=== PATIENT | male | born 1930 | race Caucasian/White ===

== ENCOUNTER 2018-01-09 06:43 | Emergency (ER) | payer OTHER, MEDICARE ==
[~2018-01-09] VITALS: Ht 170.2 cm; Wt 95.3 kg
[~2018-01-09 06:43] MED LIST: ALLOPURINOL 10100 M1 PO; APAP500; ASPIRIN EC325 M1 PO; ASPIRIN325 PO; ATIVAN0.5 MG PO; CELEBREX 200 M200 M1 PO; CLOPIDOGREL75 MG PO; FISH OIL 1,001000 M1 PO; FISH OIL 1,001000 M2 PO; FLOMAX PO; NORCO 5-325 TA1 EACH PO; NORVASC 2.5 MG2.5 M1 PO; PAXIL 20 MG TAB20 M1 PO; PERCOCET 5-3251 EACH PO; ULTRAM 50MG TAB50 MG PO; VITAMIN B-12100 MC1 PO; VITAMIN B-121000 MC1 PO; VITAMIN B-12500 MCG PO; VITAMIN D3400 UNIT PO; ZOFRAN ODT4 MG PO
[2018-01-09 07:14] LABS: ABSOLUTE NEUTROPHILS 5.5 thou/uL (1.4-8.2); BASOPHILS 1.5 % (0.0-2.0); EOSINOPHILS 1.7 % (0.0-3.0); HEMATOCRIT 43.7 % (42.0-52.0); HEMOGLOBIN 14.7 gm/dL (14.0-18.0); LYMPHOCYTES 16.3 % (24.0-44.0); MCH 31.9 pg (26.0-34.0); MCHC 33.8 g/dL (28.0-37.0); MCV 94.5 fL (80.0-100.0); MONOCYTES 8.8 % (1.0-8.0); PLATELET COUNT 256 thou/uL (150-400); POLYS 71.7 % (36.0-66.0); RBC 4.62 mil/uL (4.50-6.00); RDW 14.3 % (10.5-14.5); WBC 7.7 thou/uL (4.0-11.0)
[2018-01-09 07:14] LABS: URINE BILIRUBIN NEGATIVE (Negative); URINE BLOOD NEGATIVE (Negative); URINE CLARITY CLEAR; URINE COLOR YELLOW; URINE GLUCOSE-RANDOM* NEGATIVE (Negative); URINE KETONES NEGATIVE (Negative); URINE LEUKOCYTES-REFLEX NEGATIVE (Negative); URINE NITRITE-REFLEX NEGATIVE (Negative); URINE PROTEIN (DIPSTICK) NEGATIVE (Negative); URINE UROBILINOGEN 0.2 E.U./dl (0.2-1.0)
[2018-01-09 07:22] LABS: CALCIUM 9.4 mg/dL (8.5-10.1); CREATININE 1.3 mg/dL (0.7-1.3); POTASSIUM 4.2 mmol/L (3.5-5.1)
[2018-01-09 07:28] LABS: ALBUMIN 3.5 g/dL (3.4-5.0); TOTAL BILIRUBIN 0.8 mg/dL (<0.1-1.0); TOTAL PROTEIN 7.2 g/dL (6.4-8.2)
[2018-01-09] MEDS ORDERED: FLEXERIL PO (08:15)
== END 2018-01-09 08:28 | disposition home or self-care (01) ==
LOC: ER 06:43
PROVIDERS: Emergency Medicine
DX: R10.9 Unspecified abdominal pain (principal); M10.9 Gout, unspecified; M19.90 Unspecified osteoarthritis, unspecified site

== ENCOUNTER → 2018-03-08 | Outpatient (CLI) | payer OTHER, MEDICARE ==
[~2018-03-08] VITALS: Ht 345.4 cm; Wt 92.1 kg
[~2018-03-08] MED LIST changes: +FLEXERIL PO; +MOBIC7.5 MG PO; +TRIAMCINOLONE A15 G1 TOP
--- NOTE | ~2018-03-08 | HPC ---
[facility] [address] [place] [address] PAIN MANAGEMENT CONSULTATION Name: SARA FARNSWORTH [facility] [id number] Admission: 03/08/18 Attend Phys: Yinka Dodd DO Discharge: Date of : 31 Report #: [id number] THIS REPORT FOR: //name// CC: Ramiro Dodd The patient is a very pleasant 87-year-old gentleman seen in consultation at the request of Dr. Ramiro Pardo for assistance with management of acute and chronic pain. The patient had been a floor product layer for many years. He has had chronic axial back pain, more recently developed right L5 radicular pain. The patient notes the pain is exacerbated with standing and walking, some relief when he is recumbent. He has tried some OTC anti-inflammatory medications with nominal efficacy. He has tried tramadol, which unfortunately caused nausea and vomiting. He has some decreased strength in his bilateral legs, no specific paresthesia and fortunately, he denies any myelopathic symptoms. He does rate his pain quite high at 9 on a visual analog scale, describes continuous, throbbing pain, right buttock, posterior thigh and calf into the foot. REVIEW OF SYSTEMS: Complete review of systems attached to the chart and was gone over with the patient. He is , seen in the company of his who is supportive. Does not drink alcohol or use tobacco products. History of gout for which he takes allopurinol. Recent bout of poison janet for which he is using a topical triamcinolone compound. He has otherwise enjoyed remarkably good health, using very little medication. He has had prostate cancer treated in 2001 with no sequelae. 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 He is retired. Pain impact score is 36/70. PHYSICAL EXAMINATION: Reveals a 5 feet 6 inches, 203 pounds gentleman, BMI is approximately 27 kilograms per meter squared. Blood pressure 137/75, pulse 59, respirations 14. Cranial nerves 2-12 are grossly intact, though he is quite hard of hearing. Thyroid is enlarged, no nodules are noted. Cervical range of motion is full. Upper extremity strength is generally preserved. Heart is regular and rhythmical without murmur. Lungs are clear to auscultation. Abdomen shows a modestly endomorphic build. Rises from chair using armrest. He has a somewhat ataxic as well as antalgic gait favoring the right leg. Grossly positive straight leg raise on the right. Dorsiflexion and plantar flexion is modestly diminished, right greater than left. Hip flexion is generally diminished. Does have an area in the left anterior medial mendez that is quite erythematous compatible with his poison janet diagnosis. Diffuse axial tenderness. Pain is exacerbated with standing, with rotation and sidebending. [address] [address] PAIN MANAGEMENT CONSULTATION Name: SARA FARNSWORTH Marilee Room #: REG [facility] Aleksandr#: [id number] Admission: 03/08/18 Attend Phys: Yinka Dodd DO Discharge: Date of : 31 Report #: [id number] DIAGNOSTIC STUDIES: Reviewed diagnostic findings including MRI from 01/09/2018 noting multilevel disk degenerative changes, L5-S1 notes right foraminal endplate osteophyte resulting in right neural foraminal narrowing with possible right L5 nerve root impingement. This does correlate with primary symptomatology. He also has spondylitic changes with facet DJD throughout the lumbar spine. ASSESSMENT: 1. 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 2. Acute exacerbation of right L5 radiculopathy secondary to spinal stenosis. 3. History of gout. RECOMMENDATIONS: 1. Meloxicam 7.5 b.i.d. 2. Epidural injection under fluoroscopy at L5-S1. 3. Follow up in 3 weeks for reevaluation. Consideration for repeat injection if indicated clinically. May consider addressing therapy at the lumbar facets for axial back pain at that time. Thank you for allowing us to participate in the patient's care. We will keep you abreast of his progress. PROCEDURE: Lumbar epidural injection under fluoroscopy. PROCEDURE NOTE: After both written and informed consent to include risk of spinal cord damage, increased pain, weakness and dural puncture, the patient was taken to the fluoroscopy suite, placed in the prone position. After sterile prep and drape, a skin wheal with lidocaine was raised. A 22-gauge epidural Tuohy needle was inserted in the midline at L5-S1 with good loss to resistance. Negative aspiration for cerebrospinal fluid or blood was noted. Then 1 mL of Omnipaque under biplanar fluoroscopy showed good spread within the epidural space. This was followed with 80 mg of triamcinolone plus 1 mL of 1.5% preservative-free Xylocaine, 0.5 mL Xylocaine was then injected to flush the needle; it was removed. The patient was monitored for an appropriate period of time and discharged in good and stable condition. <ELECTRONICALLY SIGNED> By: Yinka Dodd DO 03/09/18 0715 1215 [id number] Yinka Dodd DO /nt
[2018-03-08 11:29] VITALS: BP 137/75
== END | disposition home or self-care (01) ==
LOC: PAIN 07:16
DX: M48.061 Spinal stenosis, lumbar region without neurogenic claudication (principal); M54.16 Radiculopathy, lumbar region; G89.29 Other chronic pain; M47.896 Other spondylosis, lumbar region; M10.9 Gout, unspecified; M19.90 Unspecified osteoarthritis, unspecified site; I25.2 Old myocardial infarction; Z85.46 Personal history of malignant neoplasm of prostate; Z85.828 Personal history of other malignant neoplasm of skin; Z88.8 Allergy status to other drugs, medicaments and biological substances; Z79.899 Other long term (current) drug therapy; Z79.82 Long term (current) use of aspirin; Z86.73 Personal history of transient ischemic attack (TIA), and cerebral infarction without residual deficits; Z87.442 Personal history of urinary calculi

== ENCOUNTER → 2018-04-03 | Outpatient (CLI) | payer OTHER, MEDICARE ==
[~2018-04-03] VITALS: Ht 170.2 cm; Wt 93.0 kg
--- NOTE | ~2018-04-03 | HPC ---
[facility] [place] [address] PAIN MANAGEMENT CONSULTATION Name: SARA FARNSWORTH Room #: REG [facility].#: [id number] Admission: 04/03/18 Attend Phys: Chang Dodd DO Discharge: Date of : 31 Report #: [id number] THIS REPORT FOR: //name// CC: Ramiro Dodd DATE OF SERVICE: 04/03/2018 REFERRING PHYSICIAN: Ramiro Pardo MD CHIEF COMPLAINT: Low back pain, lower extremity pain and paresthesias. HISTORY OF PRESENT ILLNESS: As you know, the patient is an 87-year-old male referred to our service to trial epidural injections under fluoroscopic guidance. The patient was seen in consultation on 03/08/2018, and underwent epidural injection under fluoroscopic guidance with my partner, Dr. Yinka Dodd with good efficacy. The patient indicated pain improvement of approximately 90%, lasting for nearly 2-1/2 weeks. He returns today in followup visit to undergo the second in series of epidural injections in hopes of improving pain. The patient indicates no new injury, no new trauma or any changes in medical history since his last visit. He returns to undergo the second in series of epidural injections in hopes of improving pain further. ALLERGIES: TRAMADOL. CURRENT MEDICATIONS: Meloxicam, cholecalciferol, cyanocobalamin, omega-3 fish oil, aspirin, and allopurinol. SOCIAL HISTORY: The patient denies tobacco, alcohol, IV or illicit drug use. He is retired, accompanied by his today. IMAGING: No new imaging available. PQRS: The patient has osteoarthritis of the low back, mid back, bilateral hips, and knees. He has no history of rheumatoid arthritis. He places pain intensity at 5/10. He is not a fall risk, has not had a fall in the last 3 months. He is not on blood thinners. He is not treated for hypertension. He is not on opioids. He has a low opioid addiction potential. His pain impact score is rated at 36/70, moderate. PHYSICAL EXAMINATION: VITAL SIGNS: Blood pressure 145/76, pulse is 60, respiratory rate 20 and unlabored, the patient is 97% on room air, height 5 feet 7 inches tall, weight 205 pounds, BMI calculated 32.1. GENERAL: Well-developed, well-nourished, well-hydrated 87-year-old male, [place] [address] PAIN MANAGEMENT CONSULTATION Name: SARA FARNSWORTH [facility] [id number] Admission: 04/03/18 Attend Phys: Chang Dodd DO Discharge: Date of : 31 Report #: [id number] appears his stated age, he is placing current pain score at approximately 5/10. HEENT: Normocephalic, atraumatic. Pupils are equal, round, and reactive to light. Extraocular muscles are intact. EXTREMITIES: Show no clubbing, no cyanosis, and no edema. MUSCULOSKELETAL: The patient has modestly endomorphic body habitus. He rises from the chair with the use of arm rest. He has an antalgic gait favoring right lower extremity. Seated straight leg raising mildly positive right. Supine straight leg raising positive right. Vaibhav's test negative. ASSESSMENT: 1. Lumbar radiculopathy. 2. Lumbosacral spondylosis with radicular symptoms. 3. Lumbar degeneration. 4. Myofascial pain. 5. Chronic intractable pain. PLAN: 1. The patient returns today in followup visit requesting to undergo next in the series of epidural injections. The patient reported improvement in symptoms with his previous injections, he is hopeful to see similar improvement today. The patient tolerated the procedure well, had no complications with the epidural injection provided on March 08. He has returned requesting to undergo next in the series to build on success. The patient was advised risks and benefits of the procedure, he states understood and wished to proceed. 2. No medication changes made at today's visit. The patient will continue current medical therapy as previously prescribed. 3. The patient will return to our clinic on an as needed basis for the third and final in the 6-month series of epidural injections. PROCEDURE NOTE DESCRIPTION OF PROCEDURE: L3-L4 Lumbar epidural steroid injection under fluoroscopic guidance. This is the second procedure of the first series that the patient is undergoing. After obtaining written consent, the patient was taken back to the fluoroscopy suite, placed in a prone position with pillow under the abdomen to decrease lumbar lordosis. The skin overlying the lumbosacral area was then prepped and draped in aseptic fashion. The L3-L4 vertebral interspace was then identified by AP fluoroscopy. The skin and subcutaneous tissue overlying the target site of injection was anesthetized with 3 mL 1% lidocaine. A 20-gauge 3-1/2-inch Tuohy needle was then advanced under fluoroscopic guidance towards the epidural space using a paramedian approach. The epidural space was identified using loss of resistance to air technique. After negative aspiration [address] [address] PAIN MANAGEMENT CONSULTATION Name: SARA FARNSWORTH Room #: REG [facility]#: [id number] Admission: 04/03/18 Attend Phys: Chang Dodd DO Discharge: Date of : 31 Report #: [id number] for heme or cerebrospinal fluid, a total of 0.5 mL of Omnipaque was injected. A lumbar epidurogram was confirmed using both AP and lateral fluoroscopy. After negative aspiration for heme or cerebrospinal fluid, 5 mL of a solution containing 2 mL 40 mg per mL, 80 mg total triamcinolone, 3 mL lidocaine 1% was injected in increments. Contrast spread was noted posterior epidural space. The needle was then retracted approximately half way and needle tract flushed with 1 mL of 1% lidocaine. Needle was then removed. There were no apparent sensory or motor deficits in the lower extremity following the procedure. A sterile bandage was placed over the injection site. The heart rate, pulse, oximetry and blood pressure were continuously monitored after the procedure. There were no apparent complications. The patient tolerated the procedure well and was carefully escorted to the recovery room in stable condition. There were no apparent complications. After meeting discharge criteria, the patient was then discharged home. By: 0718 1202 Chang Dodd DO /nt
[2018-04-03 10:34] VITALS: BP 145/76
== END ==
LOC: PAIN 06:34
DX: M51.16 Intervertebral disc disorders with radiculopathy, lumbar region (principal); M47.27 Other spondylosis with radiculopathy, lumbosacral region; M79.1 Myalgia; G89.29 Other chronic pain; I25.2 Old myocardial infarction; Z88.8 Allergy status to other drugs, medicaments and biological substances; Z79.899 Other long term (current) drug therapy; Z98.890 Other specified postprocedural states; Z79.82 Long term (current) use of aspirin; Z87.891 Personal history of nicotine dependence; Z86.73 Personal history of transient ischemic attack (TIA), and cerebral infarction without residual deficits; Z87.442 Personal history of urinary calculi; Z87.19 Personal history of other diseases of the digestive system

== ENCOUNTER → 2018-04-25 | Outpatient (CLI) | payer OTHER, MEDICARE ==
[~2018-04-25] VITALS: Ht 167.6 cm; Wt 90.4 kg
[~2018-04-25] MED LIST changes: +HYDROCODON-ACE1 EAC7 PO; +NEURONTIN 300300 M1 PO
--- NOTE | ~2018-04-25 | HPC ---
[facility] [place] [place] [address] PAIN MANAGEMENT CONSULTATION Name: SARA FARNSWORTH [facility] #: [facility] [id number] Admission: 04/25/18 Attend Phys: Chang Dodd DO Discharge: Date of : 31 Report #: [id number] THIS REPORT FOR: //name// CC: Ramiro Dodd DATE OF SERVICE: 04/25/2018 REFERRING PHYSICIAN: Ramiro Pardo M.D. CHIEF COMPLAINT: Low back pain and bilateral lower extremity pain with paresthesias. HISTORY OF PRESENT ILLNESS: As you know, the patient is a very pleasant 87-year-old male who was referred to our service and has undergone 2 epidural injections per the request of his PCP to determine if his symptoms might be amenable to such procedures. Unfortunately, the patient is reporting no improvement in symptoms with these injections. He indicates this last injection may "actually have worsened his symptoms." The patient, as you are aware, has significant changes in the lumbar spine that might be amenable to surgery but given his age, I do not feel he is going to be a candidate for surgery. We discussed the possibility of undergoing the next in the series of epidural injections but given the fact that he received no improvement and potentially worsening symptoms, I do not recommend this further. Options that remained are limited. Physical therapy, stretching exercises and a concerted effort at weight loss could be beneficial. Medication management might be helpful and we would be more than willing to get the patient started on medications with the caveat that he would be returning to his PCP for continuation and we also discussed the surgical options, though again I do not feel he is a candidate given his advanced age. After a discussion today, the patient chose to look towards medication management. He is placing pain today at 5/10 and states his pain is sharp and stabbing, exacerbated with walking, sitting and improves with repositioning, medications and rest. He returns today for potential adjustments in medication management. ALLERGIES: TRAMADOL. CURRENT MEDICATIONS: Allopurinol 100 mg once a day, aspirin 325 mg once a day, omega-3 fish oil 1 tab per day, cyanocobalamin 1000 mcg per day, cholecalciferol 400 units per day and Meloxicam 7.5 mg twice a day. SOCIAL HISTORY: The patient denies tobacco, alcohol or IV or illicit drug use. He is retired. He is accompanied by his present in room today. IMAGING DATA: There is no new imaging available. [address] [address] PAIN MANAGEMENT CONSULTATION Name: JAVADSARA Marilee Room #: REG [facility]#: [id number] Admission: 04/25/18 Attend Phys: Chang Dodd DO Discharge: Date of : 31 Report #: [id number] PQRS: The patient has osteoarthritis of the low back, bilateral hips and knees, also bilateral hands. He has no diagnosis of rheumatoid arthritis. He places current pain score 5/10, is not a fall risk, has not had a fall in the last 3 months. He is not on blood thinners. He is not treated for hypertension. He is not on chronic opioids. He places his pain impact score 36/70, moderate. He has a low assessment for risk of opioid addiction. PHYSICAL EXAMINATION: VITAL SIGNS: Blood pressure 134/84, pulse 83, respiratory rate 16 and unlabored. The patient is 100% on room air. Height 5 feet 6 inches tall, weight 199.2 pounds and BMI calculated 32.2. GENERAL: Well-developed, well-nourished, well-hydrated, 87-year-old male. He appears his stated age, placing current pain score 5/10. HEENT: Normocephalic and atraumatic. Pupils equal, round and reactive to light. NEUROLOGICAL: Speech is fluent. The patient has decreased hearing. EXTREMITIES: Show no clubbing, no cyanosis and no edema. MUSCULOSKELETAL: Lower extremity strength appears equal and symmetrical 5/5, muscle bulk and tone equal and symmetrical. He rises from a chair using armrests. He is somewhat ataxic as well as antalgic favoring right lower extremity over left. Dorsiflexion and plantar flexion is moderately diminished but symmetrical. Seated straight leg raising negative. Supine straight leg raising positive right. Vaibhav's test negative. ASSESSMENT: 1. Lumbar radiculopathy. 2. Spinal stenosis of the lumbar spine. 3. 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 4. Lumbosacral spondylosis with radiculopathy. 5. Foraminal stenosis of the lumbar spine. 6. Facet arthropathy of the lumbar spine. 7. Lumbar degeneration. 8. Chronic intractable pain. PLAN: 1. The patient returns today in followup visit indicating that the previous 2 epidural injections only provided transient improvement in symptoms. He is not receiving benefit greater than approximately a week. I would not recommend continuing epidural injections as they are providing no benefit and the risk far outweighs the benefit. We discussed with the patient our concerns about this today. It does not appear he is going to be amenable to epidural injections for long-term treatment. We did discuss the other treatment options available. These would include physical therapy, stretching exercises and core strengthening techniques. We discussed medication management adding a neuropathic pain medication and low-dose opioid for pain control and [address] [address] PAIN MANAGEMENT CONSULTATION Name: SARA FARNSWORTH Room #: REG [facility]#: [id number] Admission: 04/25/18 Attend Phys: Chang Dodd DO Discharge: Date of : 31 Report #: [id number] continuation of his nonsteroidal anti-inflammatory. We discussed surgical options. After reviewing risks and benefits of all proposed treatment options, the patient chose to begin with medication management. 2. The patient will be started on gabapentin. He will start 300 mg at night. Continue for 5 nights, increase to 600 mg at night for 5 nights and then 900 mg at night for 5 nights. He is to watch for side effects of somnolence, decreased mental acuity, disorientation, confusion with the use of the medication. If he notes any side effects, decrease to the dose prior and continue that dose and contact our clinic. No side effects, continue the medication as directed. 3. The patient was provided a prescription of hydrocodone 5/325 one tab p.o. q. 8 hours p.r.n. for pain, I have given the patient #90 tablets, no refills. I have advised the patient to take the medication as directed. The patient and I had a long discussion about the medication itself. It will provide some benefit in pain, but he has to watch for side effects of somnolence, decrease in mental acuity, disorientation, confusion, mental slowing and constipation, which may be fairly profound. He has had some side effects to tramadol and he will watch for any nausea that may be generated from his hydrocodone. 4. We will see the patient back in followup visit in approximately 3-4 weeks. At that time, review the efficacy of the medication provided and discussed if any other changes need to be addressed. We will stabilize the patient on his medication and returning his care to his primary care once stable. <ELECTRONICALLY SIGNED> By: Chang Dodd DO 04/26/18 0818 1247 2225 Chang Dodd DO /nt
[2018-04-25 11:04] VITALS: BP 134/84
== END ==
LOC: PAIN 07:33
DX: M47.27 Other spondylosis with radiculopathy, lumbosacral region (principal); M51.16 Intervertebral disc disorders with radiculopathy, lumbar region; M48.061 Spinal stenosis, lumbar region without neurogenic claudication; M12.88 Other specific arthropathies, not elsewhere classified, other specified site; G89.4 Chronic pain syndrome

== ENCOUNTER → 2018-05-30 | Outpatient (CLI) | payer OTHER, MEDICARE ==
[~2018-05-30] VITALS: Ht 167.6 cm; Wt 91.4 kg
[~2018-05-30] MED LIST changes: +NABUMETONE 500500 M1 PO; +ZOFRAN ODT4 MG DISSOLVE; +ZPAK PO
--- NOTE | ~2018-05-30 | HPC ---
[facility] [place] [address] [address] PAIN MANAGEMENT CONSULTATION Name: SARA FARNSWORTH Room #: REG [facility].#: [id number] Admission: 05/30/18 Attend Phys: Chang Dodd DO Discharge: Date of : 31 Report #: [id number] THIS REPORT FOR: //name// CC: Ramiro Dodd DATE OF SERVICE: 05/30/2018 REFERRING PHYSICIAN: Ramiro Pardo M.D. CHIEF COMPLAINT: Low back pain, right lower extremity pain with paresthesias and intermittent left lower extremity pain. HISTORY OF PRESENT ILLNESS: As you know, the patient is an 87-year-old male who returns to our service for continued lumbar radiculopathy. The patient indicates his pain is at 0/10. He is having no experiencing pain at all. This recently changed with the addition of gabapentin therapy. He states he has been doing well overall, has been having some concerns of anxiety issues in the late afternoon towards the evening hours, which sounds as if he is experiencing sundowner's effect. He returns today in followup visit for suggestions and treatment. Again, the patient is reporting pain score 0/10. ALLERGIES: TRAMADOL. CURRENT MEDICATIONS: Allopurinol, aspirin, omega 3 fish oil, cyanocobalamin, cholecalciferol, meloxicam and gabapentin. SOCIAL HISTORY: The patient denies tobacco, alcohol or IV or illicit drug use. He is accompanied by his son, present in room today. IMAGING DATA: No new imaging available. PQRS: The patient has osteoarthritis and low back, bilateral hips, bilateral knees, bilateral hands and no diagnosis of rheumatoid arthritis. Places current pain score 0/10. He is a fall risk but has not had a fall in the last 3 months. He is not on blood thinners. He is treated for hypertension. He is not on any chronic opioid medications. His pain impact score is reported at 36/70, moderate though he has no pain. PHYSICAL EXAMINATION: VITAL SIGNS: Blood pressure 108/75, pulse is 65, respiratory rate 18 and unlabored. The patient is 100% on room air. Height 5 feet 6 inches tall, weight 201.6 pounds and BMI calculated 32.6. GENERAL: Well-developed, well-nourished and well-hydrated exogenously obese 87-year-old male appearing his stated age, placing current pain score 0/10. [place] [address] PAIN MANAGEMENT CONSULTATION Name: SARA FARNSWORTH [id number] Admission: 05/30/18 Attend Phys: Chang Dodd DO Discharge: Date of : 31 Report #: [id number] HEENT: Normocephalic and atraumatic. Pupils equal, round and reactive to light. Speech is fluent. The patient reports difficulty with hearing. EXTREMITIES: Show no clubbing, no cyanosis and no edema. MUSCULOSKELETAL: Lower extremity strength is symmetrical, 5/5. He shows deconditioning bilaterally. He is ambulating without difficulty. Seated straight leg raising negative. Supine straight leg raising remains mildly positive right. Vaibhav's test negative. ASSESSMENT: 1. Symptomatic lumbar radiculopathy. 2. Spinal stenosis of the lumbar spine. 3. 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 4. Lumbosacral spondylosis with radiculopathy. 5. Foraminal stenosis of the lumbar spine. 6. Facet arthropathy of the lumbar spine. 7. Chronic intractable pain. PLAN: 1. The patient returns today in followup visit now reporting pain score 0/10. The only change we have made since our last visit was the addition of gabapentin. He is now taking variable numbers of gabapentin in the morning, but always taking four 300 mg tablets at night or total of 1200 mg. I recommend to the patient at this time, we adjust his dosing in the morning hours to potentially reduce side effects of the somnolence, decreased mental acuity noted in the late afternoon hours. I recommend the patient begin taking the medication one tablet in the morning, 4 tabs at night and continue for 7 days. If no side effects and no worsening of symptoms, then reduce to 1 tab in the morning and 3 tabs at night for 7 days. If no side effects and no return of pain, then continue weaning every 7 days until off the medication entirely. He was given a schedule on titration to do so. If the patient notes pain return while decreasing his dose, he is to return to the dose prior and continue the medication at the dosing most effective for his pain that provides the least amount of side effects. We had a very long discussion with the patient about this today. His son has information in written form. They can follow for a prescription directions. 2. The patient was provided prescription of gabapentin 300 mg dose. I have given him enough to take up to 4 tablets twice a day, #240 tablets, 2 refills, 3 months' worth of medication. We will adjust these medications and prescription once we have reached an efficacious level in this patient's case. We have provided this prescription in case he has returned to the 4 tablets twice a day. 3. The patient was provided a refill prescription of nabumetone. He has not yet filled his nabumetone. I am not confident we are going to need this at this point, but I did offer this to the patient in case his pain does intensify and we may add this as an adjunct treatment. He is not to fill this medication at this time. 4. We will see the patient back in followup visit on an as needed basis. [address] [address] PAIN MANAGEMENT CONSULTATION Name: SARA FARNSWORTH Room #: REG [facility].#: [id number] Admission: 05/30/18 Attend Phys: Chang Dodd DO Discharge: Date of : 31 Report #: [id number] Please to see he is doing well. I have advised the patient to go and return to his PCP for continued therapy. <ELECTRONICALLY SIGNED> By: Chang Dodd DO 06/05/18 1259 1325 2135 Chang Dodd DO /nt
[2018-05-30 10:59] VITALS: BP 108/75
== END ==
LOC: PAIN 06:44
DX: M47.27 Other spondylosis with radiculopathy, lumbosacral region (principal); M51.16 Intervertebral disc disorders with radiculopathy, lumbar region; M48.062 Spinal stenosis, lumbar region with neurogenic claudication; G89.4 Chronic pain syndrome; M12.88 Other specific arthropathies, not elsewhere classified, other specified site; Z79.899 Other long term (current) drug therapy

== ENCOUNTER 2018-06-06 17:44 | Emergency (ER) | payer OTHER, MEDICARE ==
[~2018-06-06] VITALS: Ht 172.7 cm; Wt 81.7 kg
--- NOTE | ~2018-06-06 | EKG ---
[place] [address] [facility] [place] [address] ELECTROCARDIOGRAM REPORT Name: SARA FARNSWORTH Room #: DEP Aleksandr#: [id number] Admission: 06/06/18 Attend Phys: Discharge: 06/06/18 Date of : 32 Report #: [id number] THIS REPORT FOR: //name// [facility] ED Test Date: 2018-06-06 Test Time: 17:51:17 Pat Name: SARA FARNSWORTH Department: Room: Gender: Destination Specialist: cweisner : 1930 Requested By: Ignacio Castellanos Order Number: [id number] MD: Earl Diaz Measurements Intervals [place] Rate: 68 P: 32 IN: 171 QRS: -6 QRSD: 92 T: 21 QT: 392 QTc: 417 Interpretive Statements Sinus rhythm Normal tracing Compared to ECG 04/30/2018 11:22:56 No significant change was found Electronically Signed On 06-07-2018 8:06:17 CDT by Earl Diaz [email or web address] <ELECTRONICALLY SIGNED> By: Earl Diaz MD, [facility] 06/07/18 0806 [id number] Earl Diaz MD, FACC /EPI
[~2018-06-06 17:44] MED LIST changes: -ZPAK PO
[2018-06-06 18:28] LABS: HEMOGLOBIN 13.4 gm/dL (14.0-18.0); MCH 32.6 pg (26.0-34.0); MCHC 33.6 g/dL (28.0-37.0); MCV 96.9 fL (80.0-100.0); RBC 4.13 mil/uL (4.50-6.00); RDW 16.2 % (10.5-14.5); WBC 10.8 thou/uL (4.0-11.0)
[2018-06-06 18:38] LABS: ANION GAP 7 mmol/L (7-16); BUN 14 mg/dL (7-18); CALCIUM 8.9 mg/dL (8.5-10.1); CHLORIDE 106 mmol/L (98-107); CO2 26 mmol/L (21-32); CREATININE 1.2 mg/dL (0.7-1.3); GLUCOSE 105 mg/dL (74-106); POTASSIUM 4.4 mmol/L (3.5-5.1); SODIUM 139 mmol/L (136-145)
[2018-06-06 18:46] LABS: ALBUMIN 2.9 g/dL (3.4-5.0); SGOT 33 U/L (15-37); SGPT 23 U/L (30-65); TOTAL BILIRUBIN 0.5 mg/dL (<0.1-1.0); TOTAL PROTEIN 6.8 g/dL (6.4-8.2); TROPONIN-I <0.06 ng/mL (<0.06)
[2018-06-06 19:15] LABS: PLATELET COUNT 298 thou/uL (150-400)
[2018-06-06 19:17] LABS: ABSOLUTE NEUTROPHILS 6.9 thou/uL (1.4-8.2)
[2018-06-06 19:18] LABS: ANISOCYTOSIS 1+
[2018-06-06] MEDS ORDERED: ZPAK PO (19:33)
== END 2018-06-06 20:02 | disposition home or self-care (01) ==
LOC: ER 17:44
PROVIDERS: Emergency Medicine
DX: R05 Cough (principal); R06.02 Shortness of breath; R07.89 Other chest pain; Z86.73 Personal history of transient ischemic attack (TIA), and cerebral infarction without residual deficits; Z87.01 Personal history of pneumonia (recurrent); Z85.828 Personal history of other malignant neoplasm of skin; Z87.442 Personal history of urinary calculi; Z88.0 Allergy status to penicillin; Z88.5 Allergy status to narcotic agent; Z87.891 Personal history of nicotine dependence

== ENCOUNTER → 2019-01-08 | Outpatient (CLI) | payer OTHER, MEDICARE ==
[~2019-01-08] VITALS: Ht 167.6 cm; Wt 90.7 kg
[~2019-01-08] MED LIST changes: +PAMELOR25 MG PO; +TRAMADOL 50 MG50 MG PO; +ZOLOFT50 MG PO; +ZPAK PO
[2019-01-08 14:05] VITALS: BP 138/63
--- NOTE | 2019-01-08 14:22 | NUR ---
Pain Clinic Assessment: 1. History of Osteoarthritis: Not Applicable History of Rheumatoid Arthritis: NONE 2. Height: 5 ft. 6 in. 167.6 cm. Weight: 200.0 lb. oz. 90.720 kg. Patient's BMI: 32.3 3. Vital Signs: BP: 138/63 Pulse: 78 Resp: 22 Temp: 02 Sat: 96 ECG Mon: 4. Pain Intensity: 10 W/ACTIVITY 5. Fall Risk: Dizziness: Y Needs help standing or walking: Y Fallen in the last 3 months: N Fall risk comments: 6. Patient on Blood Thinner: None 7. History of Hypertension: N 8. Opioid Therapy greater than 6 weeks: N Opiate Contract Signed: 9. Risk Assessment Tool Provided: LOW 10. Functional Assessment Tool: 11. Recreational Drug Use: Never Drug Type: Tobacco Use: Former Smoker Tobacco Type: Amount or Packs/day: How Many Years: Alcohol Use: Yes Frequency: Quant:
--- NOTE | 2019-01-15 07:41 | HPC ---
[facility] [place] [address] PAIN MANAGEMENT CONSULTATION Name: SARA FARNSWORTH Room #: REG Danitza Brandon#: [id number] Admission: 01/08/19 ������������������ Attend Phys: Chang Dodd DO Discharge: ������������������ Date of : 31 Report #: [id number] THIS REPORT FOR: //name// CC: Ramiro Dodd DATE OF SERVICE: 01/08/2019 REFERRING PHYSICIAN: Ramiro Pardo M.D. CHIEF COMPLAINT: Low back pain, right lower extremity pain with paresthesias, bilateral lower extremity weakness. HISTORY OF PRESENT ILLNESS: As you know, the patient is an 88-year-old male who suffers from chronic lumbar radiculopathy that is multifactorial in its presentation. He also suffers from central canal and neural foraminal stenosis. This is leading to weakness in the lower extremities. He returns today in followup visit indicating he has pain as high as a level of 10/10 with activity. He was initially seen in our clinic per the request of Dr. Pardo where he underwent epidural injection under fluoroscopic guidance with my partner, Dr. Yinka Dodd. He then had followup visit on my clinic, 04/26/2018, where he was indicating no improvement in symptoms with epidural injections. He was started on medication management in the form of neuropathic pain medications and a consistent nonsteroidal anti-inflammatory. Apparently, the patient has been lost to follow up visit since 05/09/2018 where we last saw the patient and with escalating doses of gabapentin to assist in pain control. Somewhere along the line, the patient has reduced his medication. With this reduction of medication, the pain had returned. He returns today in followup visit to discuss treatment options. He denies injury or trauma that may have led to symptoms occurrence. ALLERGIES: TRAMADOL. CURRENT MEDICATIONS: Zoloft 50 mg once a day, gabapentin 300 mg one tab b.i.d., nabumetone 500 mg t.i.d., hydrocodone/acetaminophen 5/325 one tab every 8 hours p.r.n. for pain, cholecalciferol 400 units per day, cyanocobalamin 1000 mcg per day, omega-3 fish oil 1 tab per day, aspirin 325 mg per day and allopurinol 100 mg once a day. SOCIAL HISTORY: The patient denies tobacco, alcohol, IV or illicit drug use. He is unaccompanied today. IMAGING DATA: No new imaging available. PQRS: The patient has osteoarthritic changes in the low back, bilateral hips, [address] [address] PAIN MANAGEMENT CONSULTATION Name: SARA FARNSWORTH [id number] Admission: 01/08/19 ������������������ Attend Phys: Chang Dodd DO Discharge: ������������������ Date of : 31 Report #: [id number] bilateral knees, bilateral hands and no diagnosis of rheumatoid arthritis. He places his current pain score at 10/10. He has a fall risk, but has not had a fall in the last 3 months. He is not on blood thinners. He is not treated for hypertension. He is not on chronic opioid medications, has a low addiction potential for opioids. His pain impact score 36/70 indicating moderate interference of daily activities secondary to pain. PHYSICAL EXAMINATION: VITAL SIGNS: Blood pressure 130/63, pulse 78 and respiratory rate 22 and unlabored. The patient is 96% on room air. Height 5 feet 6 inches tall, weight 200 pounds and BMI calculated 32.3. GENERAL: Well-developed, well-nourished and well-hydrated 88-year-old male who appears his stated age. He is in no acute distress, awake, alert and oriented x 3. Current pain score is rated at 10/10. HEENT: Normocephalic and atraumatic. Pupils equal, round and reactive to light. EXTREMITIES: Show no clubbing, no cyanosis and no edema. MUSCULOSKELETAL: Lower extremity strength appears symmetrical 5/5. He does have to use arm rest when rising from a chair. He has an antalgic and ataxic gait, favoring right lower extremity over left. Dorsiflexion and plantar flexion is moderately diminished bilaterally but is symmetrical. Seated straight leg raising negative. Supine straight leg raising positive. Vaibhav's test negative. Modified Gaenslen's positive for axial low back pain. Ankle clonus negative. Babinski is negative. ASSESSMENT: 1. Symptomatic lumbar radiculopathy. 2. Spinal stenosis of the lumbar spine. 3. 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 4. Neural foraminal stenosis of the lumbar spine. 5. Facet arthropathy of the lumbar spine. 6. Chronic intractable pain. PLAN: 1. The patient has returned today in followup visit requesting assistance for weakness in the lower extremities. He is also experiencing pain levels of 10/10. We discussed with the patient the weakness in the lower extremities is typically due to either deconditioning or neuropathic symptomology. I believe there is a combination of both in this patient's case. We also discussed treatment options for pain today and the following was discussed with the patient. 2. We discussed physical therapy, stretching exercise, core strengthening as the base of treatment to address his pain and his weakness. We discussed medication management utilizing neuropathic pain medications to address neuropathic symptoms and tramadol for pain control. We discussed epidural injections under fluoroscopic guidance though the patient had indicated no [facility] [place] [address] PAIN MANAGEMENT CONSULTATION Name: SARA FARNSWORTH Room #: REG JUSTINA Brandon#: [id number] Admission: 01/08/19 ������������������ Attend Phys: Chang Dodd DO Discharge: ������������������ Date of : 31 Report #: [id number] improvement in symptoms with epidural injection provided 03/08/2018 and again, 04/03/[address] Yinka Dodd. We also discussed surgical options with the patient, though given his age, I do not feel he is an optimal candidate. After a very long discussion of treatment options, the patient chose to begin with medication management. 3. We will initiate nortriptyline 25 mg dose at night. He will begin this dosing for 7 nights and increased to 2 tabs p.o. at bedtime for 7 nights and if no improvement in symptoms, no side effects, then increase to 75 mg p.o. at bedtime. He was given this prescription today and advised to watch for side effects of sleepiness, disorientation, confusion, mental slowing with its use. 4. The patient was provided a prescription of tramadol 50 mg dose 1 tab p.o. q 8 hours p.r.n. for pain, I have given the patient #90 tablets, advised the patient to take the medication only when pain is intolerable, not to rely on the medication prophylactically. This is to take the place of the patient's hydrocodone, which he states he cannot take due to the "crazy side effects." He was given this prescription of medication to trial over the next couple of weeks. We will discuss efficacy at followup visit. 5. We will see the patient back in followup visit in approximately 3 weeks. At that time, discuss the efficacy of the medication provided. Certainly, we can look towards interventional treatments on this patient, though they have yet to be effective for therapy. Other options would be adjustments in medication therapy. ��������������������������������������������� <ELECTRONICALLY SIGNED> ���������������������������������������� By: Chang Dodd DO ��������������������������������������������� 01/15/19 0741 [id number] Chang Dodd DO /nt
== END ==
LOC: PAIN 07:00
DX: M51.16 Intervertebral disc disorders with radiculopathy, lumbar region (principal); M48.062 Spinal stenosis, lumbar region with neurogenic claudication; G89.4 Chronic pain syndrome; M12.88 Other specific arthropathies, not elsewhere classified, other specified site; Z79.899 Other long term (current) drug therapy

== ENCOUNTER → 2019-01-22 | Outpatient (CLI) | payer OTHER, MEDICARE ==
[~2019-01-22] VITALS: Ht 167.6 cm; Wt 91.3 kg
--- NOTE | ~2019-01-22 | HPC ---
[facility] [address] [place] [address] PAIN MANAGEMENT CONSULTATION Name: SARA FARNSWORTH Room #: REG [facility] [id number] Admission: 01/22/19 ������������������ Attend Phys: Chang Dodd DO Discharge: ������������������ Date of : 31 Report #: [id number] THIS REPORT FOR: //name// CC: Ramiro Dodd DATE OF SERVICE: 01/22/2019 CHIEF COMPLAINT: Low back pain, right lower extremity pain and paresthesias, bilateral lower extremity weakness. HISTORY OF PRESENT ILLNESS: As you know, the patient is an 88-year-old male suffers from chronic lumbar radiculopathy that is multifactorial in its distribution and sources. He suffers from central canal stenosis, neural foraminal stenosis leading to weakness in the lower extremities and chronic right leg pain. We have trialed the patient on various treatment options. He has undergone epidural injections under fluoroscopic guidance at 2 different visits, both of which provided no prolonged benefit. He was started on medication management, but continues to experience side effects to the therapy. We had the patient on gabapentin at one point in time, but the patient cannot remember if he received benefit, though the medication was reduced by his PCP. When questioning the patient, the patient has no recollection of why this medication was reduced. We have adjusted medications 4 different times total, all of which have led to either side effects he could not tolerate or no improvement in symptoms. At our last visit, we started the patient on TRAMADOL, though he listed it as an allergy, he does not have an allergic reaction to the medication. He did have some potential nausea with the medication, though he was also taking nortriptyline at that time. He feels the nortriptyline that we started him on was ineffective and this was the source of his morning nausea. He discontinued the nortriptyline, his nausea improved. He returns today in followup visit to discuss potential changes in medication therapy or options for treatment. ALLERGIES: TRAMADOL. CURRENT MEDICATIONS: Zoloft 50 mg once a day, gabapentin 300 mg b.i.d., nabumetone 500 mg t.i.d., hydrocodone/acetaminophen 5/325 one tab every 8 hours p.r.n. for pain, cholecalciferol 400 units per day, cyanocobalamin 1000 mcg per day, omega-3 fish oil 1 tab per day, aspirin 325 mg per day, allopurinol 100 mg per day. SOCIAL HISTORY: The patient denies tobacco, alcohol, IV or illicit drug use. He is retired, retired years ago. He is accompanied by his present [place] [address] PAIN MANAGEMENT CONSULTATION Name: SARA FARNSWORTH Room #: REG [facility] [id number] Admission: 01/22/19 ������������������ Attend Phys: Chang Dodd DO Discharge: ������������������ Date of : 31 Report #: [id number] IMAGING: No new imaging available. PQRS: The patient has known osteoarthritic change in the lumbar spine, bilateral hips, bilateral knees, bilateral hands. No diagnosis of rheumatoid arthritis. He is placing pain impact score at 6/10. He is not a fall risk, has not had a fall in the last 3 months. He is not on blood thinners. He reports he is not treated for hypertension. He is not on chronic opioids. He does have a low opiate addiction potential. Pain impact score 36/70 indicating moderate interference of daily activities secondary to pain. PHYSICAL EXAMINATION: VITAL SIGNS: Blood pressure 137/92, pulse 84, respiratory rate 16 and unlabored. The patient is 96% on room air. Height 5 feet 6 inches tall, weight 201.2 pounds, BMI calculated 32.5. GENERAL: Well-developed, well-nourished, well-hydrated, exogenously obese 88-year-old male appearing stated age, placing current pain score at 6/10. HEENT: Normocephalic, atraumatic. Pupils are equal, round, and reactive to light. Hearing is decreased, but he does understand our conversation. EXTREMITIES: Show no clubbing, no cyanosis, no edema. MUSCULOSKELETAL: Lower extremity strength appears symmetrical at 5/5. He has give way strength noted with hip flexion, knee extension bilaterally. Antalgic gait favoring right lower extremity over left. Gait is mildly wide-based. Dorsiflexion and plantar flexion of the feet are moderately diminished bilaterally, but symmetrical. Seated straight leg raising negative. Supine straight leg raising positive. ASSESSMENT: 1. Symptomatic lumbar radiculopathy. 2. Spinal stenosis of the lumbar spine. 3. 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 4. Lumbosacral spondylosis with radiculopathy. 5. Neural foraminal stenosis of lumbar spine. 6. Facet arthropathy of the lumbar spine. 7. Lumbar degeneration. 8. Chronic intractable pain. PLAN: 1. The patient returns today in followup visit having difficulty with nortriptyline. He states that he was nauseated in the morning hours after taking the nortriptyline 2 tabs p.o. at bedtime. He did not have side effects at 1 tab p.o. at bedtime, but also received no benefit. The increase to 2 tabs p.o. at bedtime left the patient with morning nausea. He discontinued the use only after one dosing. We are not sure whether or not this medication could have been beneficial as the patient did not continue the medication. He has subsequently discontinued the use of this therapy. 2. The patient is on TRAMADOL noting no improvement in symptoms, but no side [facility] [address] [place] [address] PAIN MANAGEMENT CONSULTATION Name: SARA FARNSWORTH Room #: REG Danitza Malcolm.#: [id number] Admission: 01/22/19 ������������������ Attend Phys: Chang Dodd DO Discharge: ������������������ Date of : 31 Report #: [id number] effects. He does not have an allergy to TRAMADOL, this needs to be removed from his medical record. Unfortunately, TRAMADOL has not provided much in the way of improvement. The hydrocodone provided by his PCP caused severe nausea and vomiting and he could not take the medication. The patient trialed even a half a dose hydrocodone with same results. 3. Would recommend possible change to Lyrica. We will start it out at 75 mg dose 1 tab p.o. at bedtime. We will continue for 7 nights and increase to 2 tabs p.o. at bedtime. I do not feel high-dose medications going to be necessary in this patient. We will watch for side effects of somnolence, decrease in mental acuity, disorientation, confusion, mental slowing. If he notes any side effects to this medication, he is to reduce to the dose prior and contact our clinic. We are hopeful the patient will see benefit with this medication. 4. I have discussed with the patient we are running out of options for treatment. He is having side effects to medication at very low doses, which is concerning as medications from here forward have higher side effect profile and require a much larger dosing. Epidural injections have been ineffective and would not be recommended to be repeated. He is not an excellent candidate from a surgical standpoint given his age, though his health is good. He might ultimately have to be evaluated from a surgical standpoint if we cannot control symptoms with more conservative options. We discussed this with the patient today. He will consider those options. 5. We will see the patient back in followup visit on an as needed basis for adjustments in medication therapy. ��������������������������������������������� ���������������������������������������� By: ��������������������������������������������� [id number] Chang Dodd DO /nt
[2019-01-22 13:39] VITALS: BP 137/92
--- NOTE | 2019-01-22 13:52 | NUR ---
Pain Clinic Assessment: 1. History of Osteoarthritis: SPINE History of Rheumatoid Arthritis: NONE 2. Height: 5 ft. 6 in. 167.6 cm. Weight: 201.2 lb. oz. 91.264 kg. Patient's BMI: 32.5 3. Vital Signs: BP: 137/92 Pulse: 84 Resp: 16 Temp: 02 Sat: 96 ECG Mon: 4. Pain Intensity: 6 walking 5. Fall Risk: Dizziness: N Needs help standing or walking: N Fallen in the last 3 months: N Fall risk comments: 6. Patient on Blood Thinner: None 7. History of Hypertension: N 8. Opioid Therapy greater than 6 weeks: N Opiate Contract Signed: 9. Risk Assessment Tool Provided: LOW 10. Functional Assessment Tool: 11. Recreational Drug Use: Never Drug Type: Tobacco Use: Former Smoker Tobacco Type: Amount or Packs/day: How Many Years: Alcohol Use: Yes Frequency: Special Occasions Quant:
== END ==
LOC: PAIN 06:53
DX: M51.16 Intervertebral disc disorders with radiculopathy, lumbar region (principal); M48.061 Spinal stenosis, lumbar region without neurogenic claudication; R20.2 Paresthesia of skin; G89.4 Chronic pain syndrome

== ENCOUNTER → 2019-02-12 | Outpatient (CLI) | payer OTHER, MEDICARE ==
[~2019-02-12] VITALS: Ht 167.6 cm; Wt 89.9 kg
[2019-02-12 13:09] VITALS: BP 111/81
--- NOTE | 2019-02-12 13:19 | NUR ---
Pain Clinic Assessment: 1. History of Osteoarthritis: SPINE History of Rheumatoid Arthritis: NONE 2. Height: 5 ft. 6 in. 167.6 cm. Weight: 198.2 lb. oz. 89.903 kg. Patient's BMI: 32.0 3. Vital Signs: BP: 111/81 Pulse: 85 Resp: 16 Temp: 02 Sat: 96 ECG Mon: 4. Pain Intensity: 10+ 5. Fall Risk: Dizziness: Y Needs help standing or walking: Y Fallen in the last 3 months: N Fall risk comments: 6. Patient on Blood Thinner: None 7. History of Hypertension: N 8. Opioid Therapy greater than 6 weeks: N Opiate Contract Signed: 9. Risk Assessment Tool Provided: LOW 10. Functional Assessment Tool: 11. Recreational Drug Use: Never Drug Type: Tobacco Use: Former Smoker Tobacco Type: Amount or Packs/day: How Many Years: Alcohol Use: No Frequency: Quant:
--- NOTE | 2019-02-20 12:17 | HPC ---
[facility] [address] [place] [address] PAIN MANAGEMENT CONSULTATION Name: SARA FARNSWORTH Room #: REG [facility] Aleksandr#: [id number] Admission: 02/12/19 ������������������ Attend Phys: Chang Dodd DO Discharge: ������������������ Date of : 31 Report #: [id number] THIS REPORT FOR: //name// CC: Ramiro Dodd DATE OF SERVICE: 02/12/2019 REFERRING PHYSICIAN: Ramiro Pardo MD. CHIEF COMPLAINT: Low back pain, right lower extremity pain and paresthesias, bilateral lower extremity weakness. HISTORY OF PRESENT ILLNESS: As you know, the patient is an 88-year-old male with longstanding history of lumbar radiculopathy that is due to central canal stenosis as well as severe neural foraminal stenosis leading to low back pain, right lower extremity pain and bilateral lower extremity weakness. The patient has undergone various treatment options including 2 epidural injections and medication changes. Each medication change we have provided either led to side effects the patient could not tolerate or discontinued by his primary care physician. He returns today in followup visit with continued weakness. We have discussed this with the patient in the past that there is no option for treatment that we can provide that will lead to improvement in weakness. Pain can be addressed with a possible spinal cord stimulator, and we have discussed this in the past and returns to discuss it again today. Surgical options do exist for the patient and may be necessary ultimately if the weakness is his main concern as the options we provide do not improve weakness. He returns today to discuss the possibility of a spinal cord stimulator to address his low back pain and right lower extremity symptoms. ALLERGIES: TRAMADOL. CURRENT MEDICATIONS: Zoloft 50 mg once a day, gabapentin 300 mg b.i.d., nabumetone 500 mg t.i.d., hydrocodone/acetaminophen 5/325 one tab every 8 hours p.r.n. for pain, cholecalciferol 400 units per day, cyanocobalamin 1000 mcg per day, omega-3 fish oil 1 tab per day, aspirin 325 mg per day. Allopurinol 100 mg per day. SOCIAL HISTORY: The patient denies tobacco, alcohol, IV or illicit drug use. He is retired, retired years ago, accompanied by his who is present in room today. IMAGING: No new imaging available. PQRS: The patient has known arthritic change to the lumbar spine, bilateral [address] [address] PAIN MANAGEMENT CONSULTATION Name: SARA FARNSWORTH [id number] Admission: 02/12/19 ������������������ Attend Phys: Chang Dodd DO Discharge: ������������������ Date of : 31 Report #: [id number] hips, bilateral knees, bilateral hands, no diagnosis of rheumatoid arthritis. He is placing pain intensity 10+/10. He is a fall risk, has not had a fall in the last 3 months. He does not use any type of ambulatory device. He is not on blood thinners. He reports he is not treated for hypertension. He is not on chronic opioids. He does have a low opiate addiction potential and placing pain impact at 36/70, only moderate interference of daily activities secondary to pain. PHYSICAL EXAMINATION: VITAL SIGNS: Blood pressure 111/81, pulse 85, respiratory rate 16 and unlabored. The patient is 96% on room air. Height 5 feet 6 inches tall, weight 198.2 pounds, BMI calculated 32.0. GENERAL: Well-developed, well-nourished, well-hydrated 88-year-old male, appearing stated age, pain is rated somewhere between 10+/10. HEENT: Normocephalic, atraumatic. Pupils equal, round, reactive to light. Speech fluent. The patient does have some issues with cognition, may be related more to his hearing than underlying dementia. He is placing pain today at 10+/10. EXTREMITIES: Show no clubbing, no cyanosis, no edema. MUSCULOSKELETAL: Lower extremity strength is symmetrical 5/5. He does have giveaway strength noted with hip flexion, knee extension bilaterally. Antalgic gait favoring right lower extremity over left. Gait is mildly wide based and somewhat shuffling. Dorsiflexion and plantar flexion of feet moderately diminished bilaterally, but symmetrical. Seated straight leg raising negative. Supine straight leg raising positive. Ankle clonus negative. Babinski appears negative. ASSESSMENT: 1. Symptomatic lumbar radiculopathy. 2. Spinal stenosis of lumbar spine. 3. Displacement of lumbar intervertebral disk with radiculopathy. 4. Lumbosacral spondylosis with radiculopathy. 5. Severe neural foraminal stenosis of lumbar spine. 6. Facet arthropathy of the lumbar spine. 7. Lumbar degeneration. 8. Intractable pain. PLAN: 1. The patient returns today in followup visit where we discussed once again treatment options available for his symptoms. From a pain standpoint, treatment could include a spinal cord stimulator. This would help with axial back pain, right lower extremity pain, but will not resolve the patient's ongoing weakness issues. Weakness is related to central canal neural foraminal stenosis and without decompression. Weakness will continue. I am very concerned about this patient as he has difficulty with ambulating at present and further weakness will lead to further debility. I believe he may ultimately need to discuss his [address] [address] PAIN MANAGEMENT CONSULTATION Name: SARA FARNSWORTH [id number] Admission: 02/12/19 ������������������ Attend Phys: Chang Dodd DO Discharge: ������������������ Date of : 31 Report #: [id number] case with Neurosurgery if he wishes to maintain strength in the lower extremities. From a pain standpoint, treatment with medication management has been either met with side effects he could not tolerate or discontinuation of medication or reduction of medication through his PCP without knowledge of our services or discussion with our services in regards to treatment. He returns today failing epidural injections and medication management, looking for possible treatment with spinal cord stimulator. 2. The patient was advised that third republican payer restrictions will require that authorization be obtained before the patient could even undergo a trial implantation of spinal cord stimulator. This could take up to months to obtain. We will begin this process immediately. In the interim, the patient will seek evaluation through Psychiatry. He will need to undergo psychiatric evaluation and be determined a suitable candidate from a psychiatric standpoint to progress towards a trial implantation of a device. If this is completed in the very near future, we can complete the process of authorization and await results from the third republican payer. The patient will undergo evaluation from Psychiatry. Once this is completed, we will then send his entire chart for review. We will keep the patient apprised of her progress. 3. We made no changes in medication management at this time. The patient will remain on current therapy. We have trialed multiple neuropathic pain medications with side effects the patient could not tolerate. No further adjustments in those medications will be offered. 4. We will see the patient back in followup visit. Once he has completed the psychiatric evaluation, we will review the findings. If he is deemed to be a suitable candidate, we can move forward with a trial implantation of the findings. If this is successful, then he can move forward with permanent implant. Again, I have advised the patient this treatment will provide improvement in back pain and right lower extremity pain, but will not in any way improve the patient's weakness he is experiencing bilaterally. This would have to be done surgically We will see the patient back in followup visit once authorization has been completed. ��������������������������������������������� <ELECTRONICALLY SIGNED> ���������������������������������������� By: Chang Dodd DO ��������������������������������������������� 02/20/19 1217 [id number] Chang Dodd DO /nt
== END ==
LOC: PAIN 06:44
DX: M48.07 Spinal stenosis, lumbosacral region (principal); M47.27 Other spondylosis with radiculopathy, lumbosacral region; M51.17 Intervertebral disc disorders with radiculopathy, lumbosacral region; G89.29 Other chronic pain

== ENCOUNTER → 2019-03-19 | Outpatient (CLI) | payer OTHER, MEDICARE ==
[~2019-03-19] VITALS: Ht 165.1 cm; Wt 89.4 kg
[2019-03-19 10:36] VITALS: BP 136/76
--- NOTE | 2019-03-19 10:52 | NUR ---
Pain Clinic Assessment: 1. History of Osteoarthritis: SPINE History of Rheumatoid Arthritis: NONE 2. Height: 5 ft. 5 in. 165.1 cm. Weight: 197.0 lb. oz. 89.359 kg. Patient's BMI: 32.8 3. Vital Signs: BP: 136/76 Pulse: 57 Resp: 20 Temp: 02 Sat: 97 ECG Mon: 4. Pain Intensity: 8 5. Fall Risk: Dizziness: N Needs help standing or walking: N Fallen in the last 3 months: N Fall risk comments: 6. Patient on Blood Thinner: None 7. History of Hypertension: N 8. Opioid Therapy greater than 6 weeks: N Opiate Contract Signed: 9. Risk Assessment Tool Provided: LOW 10. Functional Assessment Tool: 11. Recreational Drug Use: Never Drug Type: Tobacco Use: Former Smoker Tobacco Type: Amount or Packs/day: How Many Years: Alcohol Use: No Frequency: Quant:
--- NOTE | 2019-03-26 14:01 | HPC ---
[facility] [address] [place] [address] PAIN MANAGEMENT CONSULTATION Name: SARA FARNSWORTH Room #: REG [facility] Aleksandr#: [id number] Admission: 03/19/19 ������������������ Attend Phys: Chang Dodd DO Discharge: ������������������ Date of : 31 Report #: [id number] THIS REPORT FOR: //name// CC: Ramiro Dodd DATE OF SERVICE: 03/19/2019 CHIEF COMPLAINT: Low back pain, right lower extremity pain with paresthesias and bilateral lower extremity weakness. HISTORY OF PRESENT ILLNESS: As you know, the patient is an 88-year-old male with longstanding history of lumbar radiculopathy due to central canal stenosis. He also suffers from severe neural foraminal stenosis leading to chronic low back pain, bilateral lower extremity weakness and pain. He has trialed multiple medications and failed each of them for either side effects or lack of efficacy. We tried epidural injections under fluoroscopic guidance both of which provided no benefit. We discontinued this activity. He would require surgery to improve his lower extremity weakness, which would necessitate a full fusion with long recovery time and given his age he is not an optimal candidate. We decided to move forward with discussions of spinal cord stimulator therapy. The patient has undergone psychiatric evaluation. He returns today to review those findings and discuss planning of a trial implantation to determine if these will be effective at treating symptoms. I did advise the patient again today about the potential benefits of a spinal cord stimulator and the fact that his weakness in the lower extremities will not and cannot be resolved by this device. He wishes to review the findings today and discussed planning despite the fact that his reported weakness will not be improved. ALLERGIES: TRAMADOL. CURRENT MEDICATIONS: Zoloft 5 mg once a day, gabapentin 300 mg b.i.d., nabumetone 500 mg t.i.d., hydrocodone/acetaminophen 5/325 one tab every 8 hours p.r.n. pain, cholecalciferol 400 units per day, cyanocobalamin 1000 mcg per day, omega-3 fish oil 1 tab per day, aspirin 325 mg per day and allopurinol 100 mg per day. SOCIAL HISTORY: The patient denies tobacco, alcohol, IV or illicit drug use. He is retired, retired years ago, accompanied by his present in room today. IMAGING: No new imaging available. PQRS: The patient has arthritic changes in the lumbar spine, bilateral hips, bilateral knees, bilateral hands, no diagnosis of rheumatoid arthritis. He is placing pain today at 8/10. He is not a fall risk, [place] [address] PAIN MANAGEMENT CONSULTATION Name: SARA FARNSWORTH Room #: REG [facility].#: [id number] Admission: 03/19/19 ������������������ Attend Phys: Chang Dodd DO Discharge: ������������������ Date of : 31 Report #: [id number] last three months, he is not on blood thinners and he is treated for hypertension. He is not on chronic opioids and has a low opiate addiction potential. He has pain impact score of 36/70, moderate interference of daily activities secondary to pain. PHYSICAL EXAMINATION: VITAL SIGNS: Blood pressure 136/76, pulse 57, respiratory rate 20 and unlabored. The patient is 97% on room air, height 5 feet 5 inches tall, weight 197 pounds and BMI calculated 32.8. GENERAL: Well-developed, well-nourished, well-hydrated, 88-year-old male. He appears his stated age. He is placing current pain score at 8/10. HEENT: Normocephalic and atraumatic. Pupils are equal, round and reactive to light. Extraocular muscles are intact. Sclerae are nonicteric without injection. Speech is fluent. The patient deemed a fair historian. EXTREMITIES: Show no clubbing, no cyanosis and no edema. MUSCULOSKELETAL: Lower extremity strength is weakened perceptionally based on the patient's report though his strength is 5/5. He has some giveaway strength noted with hip flexion and knee extension bilaterally. This is due to pain generation. The patient displays antalgic gait favoring right lower extremity over left. Wide based and somewhat shuffling. Seated straight leg raising is negative. Supine straight leg raising is positive. Ankle clonus is negative. Babinski is negative. Deep tendon reflexes are diminished bilaterally and symmetrical. ASSESSMENT: 1. Symptomatic lumbar radiculopathy. 2. Spinal stenosis of the lumbar spine. 3. Displacement of lumbar intervertebral disk with radiculopathy. 4. Lumbosacral spondylosis with radiculopathy. 5. Facet arthropathy of the lumbar spine. 6. Lumbar degeneration. 7. Chronic intractable pain. PLAN: 1. The patient now returns today in followup visit to review his psychiatric evaluation in preparation for moving forward with scheduling of a spinal cord stimulator. We have reviewed the psychiatric evaluation in its entirety discussing the findings with the patient over 17-minute period of time. After this discussion of the findings and the lack of any concerning psychopathology, we then discussed with the patient the spinal cord stimulating device and how it would be implanted, how the temporary implant would be preceding and what effects we expect to see. We discussed with the patient that his weakness that he is reporting will not and cannot be resolved by a spinal cord stimulator. The spinal stenosis the patient is experiencing is the source of this issue and if he wishes to resolve [facility] [address] [place] [address] PAIN MANAGEMENT CONSULTATION Name: SARA FARNSWORTH Room #: REG [facility]#: [id number] Admission: 03/19/19 ������������������ Attend Phys: Chang Dodd DO Discharge: ������������������ Date of : 31 Report #: [id number] this specific problem the only option he has is to undergo full lumbar fusion and decompression. The spinal cord stimulating device can improve overall pain for which he is placing pain at an 8/10, but will not resolve entire symptoms. We discussed this at length with the patient today. He states he understands. He may only gain a percentage improvement and that from that point forward he may see some improvement in overall pain. He does wish to move forward with implant. 2. The patient will be scheduled to undergo implantation of a spinal cord stimulator. We will begin the process of authorization through his third constitution party payer. Once we have achieved this authorization, we will schedule the patient to undergo the procedure. I have advised the patient to make sure that he clears the entire week after the implant for the trial. He will not be able to shower or bathe during that time. All restrictions will we provided to the patient on the day of the procedure. 3. No medication changes provided at today's visit. The patient will continue current medical therapy as previously prescribed. 4. We will see the patient back in followup visit once we have achieved authorization for implantation of a spinal cord stimulator. ��������������������������������������������� <ELECTRONICALLY SIGNED> ���������������������������������������� By: Chang Dodd DO ��������������������������������������������� 03/26/19 1401 [id number] Chang Dodd DO /nt
== END ==
LOC: PAIN 09:32
DX: M47.27 Other spondylosis with radiculopathy, lumbosacral region (principal); M48.061 Spinal stenosis, lumbar region without neurogenic claudication; M51.16 Intervertebral disc disorders with radiculopathy, lumbar region; M12.88 Other specific arthropathies, not elsewhere classified, other specified site; G89.29 Other chronic pain

== ENCOUNTER → 2019-04-09 | Outpatient (CLI) | payer OTHER, MEDICARE ==
[~2019-04-09] VITALS: Ht 165.1 cm; Wt 89.4 kg
[2019-04-09 07:06] VITALS: BP 131/73
--- NOTE | 2019-04-09 07:09 | NUR ---
Pain Clinic Assessment: 1. History of Osteoarthritis: SPINE History of Rheumatoid Arthritis: NONE 2. Height: 5 ft. 5 in. 165.1 cm. Weight: 197.0 lb. oz. 89.359 kg. Patient's BMI: 32.8 3. Vital Signs: BP: 131/73 Pulse: 60 Resp: 14 Temp: 02 Sat: 96 ECG Mon: 4. Pain Intensity: 5 5. Fall Risk: Dizziness: N Needs help standing or walking: N Fallen in the last 3 months: N Fall risk comments: 6. Patient on Blood Thinner: None 7. History of Hypertension: N 8. Opioid Therapy greater than 6 weeks: N Opiate Contract Signed: 9. Risk Assessment Tool Provided: LOW 10. Functional Assessment Tool: 11. Recreational Drug Use: Never Drug Type: Tobacco Use: Former Smoker Tobacco Type: Amount or Packs/day: How Many Years: Alcohol Use: No Frequency: Quant:
--- NOTE | 2019-04-09 12:56 | HPC ---
[facility] [address] [place] [address] PAIN MANAGEMENT CONSULTATION Name: SARA FARNSWORTH [id number] Admission: 04/09/19 Attend Phys: Chang Dodd DO Discharge: Date of : 31 Report #: [id number] THIS REPORT FOR: //name// CC: Ramiro Dodd DATE OF SERVICE: 04/09/2019 REFERRING PHYSICIAN: Ramiro Pardo MD CHIEF COMPLAINT: Low back pain, right lower extremity pain with paresthesias and bilateral lower extremity weakness. HISTORY OF PRESENT ILLNESS: As you know, the patient is an 88-year-old male referred to our service for discussion of treatment options for lumbar radiculopathy secondary to severe central canal stenosis leading to bilateral lower extremity weakness and right lower extremity pain and paresthesias. We have trialled epidural injections, medication management, all of which have failed due to lack of long-term efficacy or side effects he could not tolerate. We have now moved forward with a spinal cord stimulator trial implantation. We have received authorization for the patient to undergo the procedure today. He returns to undergo that procedure in hopes of improving pain. If it is successful, then moving forward with permanent implant. He indicates pain is aching, places pain today at 5/10. Walking, standing, bending exacerbate symptoms. Medications and sitting tend to improve pain. He has returned today in followup visit requesting the spinal cord stimulator trial implantation to be performed. He denies new injury, trauma or any changes in medical history since our last visit. ALLERGIES: TRAMADOL. CURRENT MEDICATIONS: Zoloft, gabapentin, nabumetone, hydrocodone, cholecalciferol, cyanocobalamin, omega-3 fish oil, aspirin, allopurinol. SOCIAL HISTORY: The patient denies tobacco, alcohol, IV or illicit drug use. He is retired, retired years ago, accompanied by his present in room today. IMAGING: No new imaging available. PQRS: The patient has known arthritic changes of the lumbar spine, bilateral hips, bilateral knees, bilateral hands; no diagnosis of rheumatoid arthritis. He is placing pain today at 5/10. He is not a fall risk, has not had a fall in last 3 months. He is not on blood thinners. He is not treated for hypertension. He is not on long-term opioid medications. He has a low opioid addiction potential based on our evaluation tool. Pain impact score 36/[address] [address] PAIN MANAGEMENT CONSULTATION Name: SARA FARNSWORTH Room #: REG CLI [facility]#: [id number] Admission: 04/09/19 Attend Phys: Chang Dodd DO Discharge: Date of : 31 Report #: [id number] indicating moderate interference of daily activities secondary to pain. PHYSICAL EXAMINATION: VITAL SIGNS: Blood pressure 131/73, pulse 60, respiratory rate 14 and unlabored. The patient is 96% on room air. Height 5 feet 5 inches tall, weighs 197 pounds, BMI calculated 32.8. GENERAL: Well-developed, well-nourished, well-hydrated exogenously obese 88-year-old male. He appears stated age, pain is rated today 5/10. HEENT: Normocephalic, atraumatic. Pupils equal, round, reactive to light. EXTREMITIES: Show no clubbing, no cyanosis, and no edema. MUSCULOSKELETAL: Lower extremity strength is weakened bilaterally in the lower extremities per patient's perception, though strength actually is measured 5/5. He has some giveaway strength noted with hip flexion, knee extension on the right due to pain. Gait is antalgic favoring right lower extremity over left. Gait is wide based and somewhat shuffling. Seated straight leg raising negative. Supine straight leg raising positive on the right. ASSESSMENT: 1. Symptomatic lumbar radiculopathy. 2. Spinal stenosis of the lumbar spine. 3. Displacement of lumbar intervertebral disk with radiculopathy. 4. Lumbosacral spondylosis with radiculopathy. 5. Facet arthropathy of the lumbar spine. 6. Lumbar degeneration. 7. Chronic intractable pain. PLAN: 1. The patient has returned today in followup visit having received precertification to undergo spinal cord stimulator trial implantation. If this is successful, then moving forward with permanent implant. The patient and I discussed the risks and the benefits of a spinal cord stimulator trial implantation. These risks include but are not necessarily limited to bleeding, bruising, infection, worsening pain, no relief of pain, also risk of temporary or permanent muscle weakness, temporary or permanent nerve damage, possible paralysis, post-dural puncture headache and . The patient states understood and wished to proceed. 2. No medication changes made at today's visit. The patient will continue current medical therapy as previously prescribed. 3. We will see the patient back in followup visit next week for explantation of the device and discussion of efficacy. PROCEDURE NOTE DESCRIPTION OF PROCEDURE: Two-lead spinal cord stimulator trial implantation with fluoroscopy. [address] [address] PAIN MANAGEMENT CONSULTATION Name: SARA FARNSWORTH Room #: REG CL Gold#: [id number] Admission: 04/09/19 Attend Phys: Chang Dodd DO Discharge: Date of : 31 Report #: [id number] After obtaining written consent, a 22-gauge IV Hep-Lock was placed in the patient's left upper extremity. The patient was given IV prophylactic antibiotic infused over 30 minutes prior to procedure. The patient was then taken to the fluoroscopy suite, placed in prone position with 2 pillows under the abdomen to decrease lumbar lordosis. Cardiopulmonary monitoring was established, and the patient's vital signs were monitored throughout the procedure. The patient's thoracolumbar spine was then prepped and draped with chlorhexidine and draped in the usual sterile fashion. There was no IV sedation given prior to procedure. AP fluoroscopic view was obtained to identify and kenneth the midline positions of the T10 through L2 spinous processes. Skin was anesthetized with 5 mL of 1% lidocaine on each side for a total of 10 mL being provided prior to the introduction of the 14-gauge 4-inch Tuohy needles. Skin entry site was approximately at the level of the L1 vertebral body. Needle was advanced using a paramedian approach to the right of midline at approximately 45-degree angle. Loss of resistance to air was utilized to verify placement within the epidural space. Epidural space entered at the T12-L1 interspace. The lateral fluoroscopic view obtained to confirm position of the tip of the Tuohy needle within the epidural space. Aspiration noted to be negative for heme or cerebrospinal fluid. The patient did not complain of pain or paresthesias during needle placement. The spinal cord stimulating lead was then advanced through the Tuohy needle under direct visualization within the midline. Tip of the stimulating lead was aligned with the inferior endplate of T7 vertebral body and located within the midline. We then addressed the left side where a 14-gauge 4-inch needle was introduced through the skin at the level of the L1 vertebral body. Needle was advanced to the left of the midline at approximately 45-degree angle. Loss of resistance to air was utilized to verify placement within the epidural space. The epidural space entered at the T12-L1 interspace. Lateral fluoroscopic view was then again obtained, confirming the position of the Tuohy needle within the epidural space. Aspiration noted to be negative for heme or cerebrospinal fluid. The patient did not complain of pain or paresthesias during needle placement. The spinal cord stimulating lead was then advanced through the Tuohy needle under direct visualization and inserted within the midline. Tip of the stimulating lead was aligned with the superior endplate of the T8 vertebral body. At this point, the temporary extension was then connected to the spinal cord stimulating leads. Stimulating testing was performed by the [employer] device credit and collections representative. The patient reported no pain or paresthesias. Final position of the 0 electrodes was reconfirmed. The stylets were then removed from the leads followed by the Tuohy needles. We then rechecked position of the leads and made sure they had not moved during the removal of the stylets or Tuohy needle. Stimulation was also rechecked. We then anchored the leads to the patient's back with Steri-Strips and OpSite bandaging. AP and lateral x-rays were then obtained to confirm position of the leads after this taping. [address] [address] PAIN MANAGEMENT CONSULTATION Name: SARA FARNSWORTH Room #: REG [facility]#: [id number] Admission: 04/09/19 Attend Phys: Chagn Dodd DO Discharge: Date of : 31 Report #: [id number] The patient tolerated the procedure well, carefully escorted to recovery room in stable condition. No apparent complications. The patient was advised if he has any difficulty with ongoing pain in the lower extremities, he is to contact the [employer] device credit and collections representative. If he has any symptoms of fever, chills, night sweats, increasing back pain or neck pain, excessive drainage from the insertion sites or increased pain in this level, he is to contact the on-call pain physician. Again, if the patient is having difficulty with pain control from his typical pain standpoint, he is to contact the [employer] device credit and collections representative for further evaluation. We will see the patient back in followup visit in 1 week for discussion of efficacy and explantation of the device. <ELECTRONICALLY SIGNED> By: Chang Dodd DO 04/09/19 [id number] Chang Dodd DO /nt
== END | disposition home or self-care (01) ==
LOC: PAIN 06:47
DX: M51.16 Intervertebral disc disorders with radiculopathy, lumbar region (principal); M51.26 Other intervertebral disc displacement, lumbar region; M48.061 Spinal stenosis, lumbar region without neurogenic claudication; M47.27 Other spondylosis with radiculopathy, lumbosacral region; M47.26 Other spondylosis with radiculopathy, lumbar region; G89.29 Other chronic pain; I25.2 Old myocardial infarction; M19.90 Unspecified osteoarthritis, unspecified site; Z79.82 Long term (current) use of aspirin; Z79.899 Other long term (current) drug therapy; Z87.891 Personal history of nicotine dependence; Z86.73 Personal history of transient ischemic attack (TIA), and cerebral infarction without residual deficits; Z87.442 Personal history of urinary calculi; Z88.8 Allergy status to other drugs, medicaments and biological substances; Z87.19 Personal history of other diseases of the digestive system

== ENCOUNTER → 2019-04-16 | Outpatient (CLI) | payer OTHER, MEDICARE ==
[~2019-04-16] VITALS: Ht 165.1 cm; Wt 89.4 kg
[2019-04-16 10:21] VITALS: BP 131/74
--- NOTE | 2019-04-16 10:35 | NUR ---
Pain Clinic Assessment: 1. History of Osteoarthritis: SPINE History of Rheumatoid Arthritis: NONE 2. Height: 5 ft. 5 in. 165.1 cm. Weight: 197.0 lb. oz. 89.359 kg. Patient's BMI: 32.8 3. Vital Signs: BP: 131/74 Pulse: 65 Resp: 18 Temp: 02 Sat: 97 ECG Mon: 4. Pain Intensity: 3 5. Fall Risk: Dizziness: N Needs help standing or walking: N Fallen in the last 3 months: N Fall risk comments: 6. Patient on Blood Thinner: None 7. History of Hypertension: N 8. Opioid Therapy greater than 6 weeks: N Opiate Contract Signed: 9. Risk Assessment Tool Provided: LOW 10. Functional Assessment Tool: 11. Recreational Drug Use: Never Drug Type: Tobacco Use: Former Smoker Tobacco Type: Amount or Packs/day: How Many Years: Alcohol Use: No Frequency: Quant:
--- NOTE | 2019-04-17 08:14 | HPC ---
[facility] [address] [place] [address] PAIN MANAGEMENT CONSULTATION Name: SARA FARNSWORTH [facility] #: [facility] [id number] Admission: 04/16/19 Attend Phys: Chang Dodd DO Discharge: Date of : 31 Report #: [id number] THIS REPORT FOR: //name// CC: Ramiro Dodd DATE OF SERVICE: 04/16/2019 CHIEF COMPLAINT: Low back pain, right lower extremity pain and paresthesias, bilateral lower extremity weakness. HISTORY OF PRESENT ILLNESS: As you know, the patient is an 88-year-old male who was referred to our service to discuss treatment options for lumbar radiculopathy secondary to severe and progressively worsening spinal stenosis of lumbar spine. This spinal stenosis caused not only right lower extremity pain and paresthesias, but bilateral weakness. He has undergone epidural injections and medication management, all of which have either failed due to lack of improvement or side effects he could not tolerate. We have progressed to have the patient undergo a spinal cord stimulator trial implantation for which he returns today, stating no improvement in symptoms. His pain apparently was unresolved by the device, though he had reported to the device footwear sales representative that his pain was completely gone during the trial. He is a difficult individual to try to determine whether or not symptoms were improved from treatment in the past and this appears to be the same today. He returns to have the device explanted and discuss treatment options. ALLERGIES: TRAMADOL. CURRENT MEDICATIONS: Zoloft, gabapentin, nabumetone, hydrocodone, cholecalciferol, cyanocobalamin, omega-3 fish oil, aspirin, and allopurinol. SOCIAL HISTORY: The patient denies tobacco, alcohol, IV or illicit drug use. He is retired, retired years ago, accompanied by his present in room today. IMAGING: No new imaging available. PQRS: The patient has arthritic changes of the lumbar spine, bilateral hips, bilateral knees, bilateral hands, no diagnosis of rheumatoid arthritis. He is placing pain intensity around 3-5/10. He is not a fall risk and has not had a fall in last 3 months. He is not on blood thinners. He is not treated for hypertension. He is on opioids, but has a low opioid addiction potential. Pain impact score 36/70, moderate interference of daily activities secondary to pain. PHYSICAL EXAMINATION: VITAL SIGNS: Blood pressure 131/74, pulse 65, respiratory rate 18 and [facility] [address] [place] [address] PAIN MANAGEMENT CONSULTATION Name: SARA FARNSWORTH [id number] Admission: 04/16/19 Attend Phys: Chang Dodd DO Discharge: Date of : 31 Report #: [id number] unlabored. The patient is 97% on room air. Height 5 feet 5 inches tall, weight 197 pounds, BMI calculated 32.8. GENERAL: Well-developed, well-nourished, well-hydrated exogenously obese 88-year-old male, appearing stated age, pain is rated today 3/10. HEENT: Normocephalic, atraumatic. Pupils equal, round, reactive to light. EXTREMITIES: Show no clubbing, no cyanosis, no edema. MUSCULOSKELETAL: Lower extremity strength is weakened bilaterally. Actual muscle strength is measured at 5/5. He has perception of weakness. Gait is antalgic favoring right lower extremity over left. Seated straight leg raising negative. Supine straight leg raising positive, right. ASSESSMENT: 1. Symptomatic lumbar radiculopathy. 2. Progressively worsening spinal stenosis of lumbar spine. 3. Displacement of lumbar intervertebral disk with radiculopathy. 4. Lumbosacral spondylosis with radiculopathy. 5. Facet arthropathy of the lumbar spine. 6. Lumbar degeneration. 7. Chronic intractable pain. PLAN: 1. The patient has returned today in followup visit for explantation of spinal cord stimulating device. During the trial of the device, the patient was reporting to the device footwear sales representative near complete resolution of pain, though today, the patient indicates he has received no improvement in symptoms. He continues to experience pain and weakness. At this point, we would indicate to the patient this has been an unsuccessful trial. We would not recommend moving forward. I do wish the patient to review over the next week, his pain levels to determine if he was unable to consider the past week as an improvement as he was still experiencing some discomfort. There is a possibility we were gaining good improvement and he was unable to discern that due to continued weakness. We recommend removing the device today. The patient will contact us later in the week to determine if moving forward with the device would be recommended, though given his lack of response by report today, I would not recommend further pursuing this option. This relieved the patient with only 2 remaining options, that is, surgical option or to remain on a low-dose medication, which according to the patient is not effectively providing relief. 2. The patient was placed in a seated position. We removed all Steri-Strips and OpSite bandaging. There were 2 spinal cord stimulating leads in place. They had not displaced from original position. The leads were both removed. The tips were intact and all electrodes were still adherent to the leads themselves. Sterile bandages were placed over the injection sites. The patient appeared to tolerate this removal without complications. There was no pain or paresthesias. 3. The patient will contact our clinic later this week. We will discuss further his experience with the spinal cord stimulator in for a week and then [facility] [address] [place] [address] PAIN MANAGEMENT CONSULTATION Name: SARA FARNSWORTH Marilee Room #: REG CL Aleksandr#: [id number] Admission: 04/16/19 Attend Phys: Chang Dodd DO Discharge: Date of : 31 Report #: [id number] out for a week and determine if there is any improvement, though given his lack of improvement in his report of continued pain and weakness, this would not be a viable treatment option. He will ultimately have to look towards other more aggressive treatment, and in this case, it would be a surgical decompression given the weakness he is experiencing. We will keep you apprised of that discussion we have on Monday. <ELECTRONICALLY SIGNED> By: Chang Dodd DO 04/17/1914 1235 0111 Chang Dodd DO /nt
== END ==
LOC: PAIN 06:52
DX: M51.16 Intervertebral disc disorders with radiculopathy, lumbar region (principal); M47.27 Other spondylosis with radiculopathy, lumbosacral region; M48.061 Spinal stenosis, lumbar region without neurogenic claudication; Z79.899 Other long term (current) drug therapy

== ENCOUNTER 2020-12-08 10:01 | Inpatient (IN) | payer OTHER, MEDICARE ==
[~2020-12-08] VITALS: Ht 152.4 cm; Wt 86.6 kg
[2020-12-08] VITALS (7 sets, daily range): BP systolic 116–146; BP diastolic 66–87
[2020-12-08 10:44] LABS: ABSOLUTE NEUTROPHILS 7.8 thou/uL (1.4-8.2); BASOPHILS 1.2 % (0.0-2.0); EOSINOPHILS 1.2 % (0.0-3.0); HEMATOCRIT 44.6 % (42.0-52.0); LYMPHOCYTES 15.8 % (24.0-44.0); MCH 31.9 pg (26.0-34.0); MCHC 33.6 g/dL (28.0-37.0); MONOCYTES 8.5 % (1.0-8.0); PLATELET COUNT 266 thou/uL (150-400); POLYS 73.3 % (36.0-66.0); RBC 4.69 mil/uL (4.50-6.00); RDW 14.4 % (10.5-14.5); WBC 10.7 thou/uL (4.0-11.0)
[2020-12-08 10:51] LABS: CREATININE 1.2 mg/dL (0.7-1.3)
[2020-12-08 10:57] LABS: ALBUMIN 3.6 g/dL (3.4-5.0); TOTAL BILIRUBIN 0.9 mg/dL (0.2-1.0); TOTAL PROTEIN 7.4 g/dL (6.4-8.2)
[2020-12-08] MEDS ORDERED: ZOLOFT50 M1 PO (11:11)
--- NOTE | 2020-12-08 13:41 | NUR ---
Pt transferred to unit from ED. Pt a&ox4. [place]. Up with x1 assist with gaitbelt. States pain a lot better than when he came in. Pt had lumbar MRI done today. Admission completed. Fall precautions in place. Will continue to monitor.
--- NOTE | 2020-12-08 20:24 | NUR ---
ASSESSMENT COMPLETED. PT IS ALERT AND ORIENTED, SO NOME. PT REPORTS PAIN OF 6/10, NORCO PRN GIVEN. PT SATTING OKAY ON ROOM AIR, HE IS AFEBRILE. DX OF SPINAL STENOSIS. DENIES NUMBNESS TO BUE AND/OR BLE.SCDS APPLIED, CALL LIGHT WITHIN REACH, FALL PREC IN PLACE.
[2020-12-09 03:39] VITALS: BP 142/85
[2020-12-09 07:30] VITALS: BP 151/73
--- NOTE | 2020-12-09 15:01 | NUR ---
ASSESSMENT: CM REVIEWED CHART. PT WAS ADMITTED DUE TO THORACIC AND LUMBAR PAIN. PT REPORTS THAT HE LIVES IN A HOUSE WITH HIS . PT REPORTS HAVING ABOUT 5 STEPS WITH HANDRAILS TO ENTER. PT HAS ABOUT 14 STEPS WITH HANDRAILS TO THE BASEMENT. PT REPORTS HE IS FULLY INDEPENDENT WITH ADLS AND AMBULATION. PT STATES HE HAS A WALKER AT HOME BUT HE DOES NOT USE IT. PT REPORTS HAVING MULTIPLE GRAB BARS THROUGHOUT THE HOME BUT STATES HE DOES PRETTY WELL INDEPENDENTLY. PT IS CURRENTLY ON IV STEROIDS AND REPORTS IMPROVEMENT. CM DISCUSSED ROLE. PT STATES HE HAS NOT HAD HH IN THE PAST. PT IS CURRENTLY WORKING WITH PHYSICAL THERAPY, PATIENT AMBULATED WITHOUT ANY DEVICE AND IF CONTINUES TO PROGRESS WILL LIKELY DISCHAGRE HOME. NEUROSURGERY HAS BEEN CONSULTED, CM AWAITING FURTHER PLANS AT THIS TIME.
--- NOTE | 2020-12-09 16:13 | NUR ---
PT ASSESSED AT START OF SHIFT. STATES MINIMAL PAIN. WALKED W/ THERAPY USING WALKER AND DID VERY WELL AND HAD NO PAIN. RN CAR INSPECTOR HERE FOR NEUROSURGERY TO SEE PT. DR. SEPULVEDA WILL SEE PT LATER TODAY. IV STEROIDS HELPING.
[2020-12-09 16:40] VITALS: BP 105/63
[2020-12-09 20:20] VITALS: BP 120/76
--- NOTE | 2020-12-09 23:22 | NUR ---
ASSESSMENT COMPLETED. PT IS ALERT AND ORIENTED. [place].PT DENIES PAIN. USING URINAL. AFEBRILE.PROGRESSING TOWARDS CARE GOALS.
[2020-12-10 05:08] VITALS: BP 131/72
[2020-12-10 07:25] VITALS: BP 136/76
[2020-12-10] MEDS ORDERED: HYDROCODON-ACE1 EAC7 PO (09:19)
[2020-12-10] MEDS ORDERED: CYCLOBENZAPRINE5 MG PO (09:19)
[2020-12-10 10:46] VITALS: BP 136/76
--- NOTE | 2020-12-10 11:10 | NUR ---
Assumed pt care at 7am.Pt in bed sound asleep at the beginning of shift. Woke pt up when breakfast tray arrived.Assessment completed.vss.Pt tolerated meds and diet.Dr Mcnair here,dc order noted.Received call from pt son.Updates given. Pt will be taking home today at noon.No verbal c/o. Will continue to monitor.
--- NOTE | 2020-12-10 14:10 | NUR ---
on-going assessment: CM REVIEWED CHART. PT HAS ORDERS TO DISCHARGE HOME TODAY WITH NO NEEDS. FAMILY PROVIDING TRANSPORTATION.
== END 2020-12-10 12:59 | disposition home or self-care (01) | DRG 552 ==
LOC: ER 10:01 → 4S 11:21 → EROBS 11:21 → 4S 12:07
PROVIDERS: Emergency Medicine; ADMIT Hospitalist; ATTEND Hospitalist
DX: M48.061 Spinal stenosis, lumbar region without neurogenic claudication (principal); M51.36 Other intervertebral disc degeneration, lumbar region; R27.0 Ataxia, unspecified; R53.81 Other malaise; R63.4 Abnormal weight loss; E55.9 Vitamin D deficiency, unspecified; E53.8 Deficiency of other specified B group vitamins; F32.9 Major depressive disorder, single episode, unspecified; Z85.828 Personal history of other malignant neoplasm of skin; Z86.73 Personal history of transient ischemic attack (TIA), and cerebral infarction without residual deficits; Z87.442 Personal history of urinary calculi; Z88.8 Allergy status to other drugs, medicaments and biological substances; Z87.891 Personal history of nicotine dependence; Z68.37 Body mass index [BMI] 37.0-37.9, adult
CPT/HCPCS: 10195

== ENCOUNTER → 2021-01-26 | Outpatient (CLI) | payer OTHER, MEDICARE ==
[~2021-01-26] VITALS: Ht 165.1 cm; Wt 86.3 kg
[~2021-01-26] MED LIST changes: +CYCLOBENZAPRINE5 MG PO; +NEURONTIN300 MG PO; +ZOLOFT50 M1 PO
[2021-01-26 09:09] VITALS: BP 144/87
--- NOTE | 2021-01-26 09:23 | NUR ---
Pain Clinic Assessment: 1. History of Osteoarthritis: SPINE History of Rheumatoid Arthritis: NONE 2. Height: 5 ft. 5 in. 165.1 cm. Weight: 190.2 lb. oz. 86.274 kg. Patient's BMI: 31.7 3. Vital Signs: BP: 144/87 Pulse: 78 Resp: 20 Temp: 02 Sat: 97 ECG Mon: 4. Pain Intensity: 5 5. Fall Risk: Dizziness: Y Needs help standing or walking: N Fallen in the last 3 months: N Fall risk comments: 6. Patient on Blood Thinner: None 7. History of Hypertension: N 8. Opioid Therapy greater than 6 weeks: N Opiate Contract Signed: 9. Risk Assessment Tool Provided: LOW 10. Functional Assessment Tool: 11. Recreational Drug Use: Never Drug Type: Tobacco Use: Former Smoker Tobacco Type: Amount or Packs/day: How Many Years: Alcohol Use: No Frequency: Quant:
--- NOTE | 2021-01-27 08:22 | HPC ---
[facility] [place] [address] PAIN MANAGEMENT CONSULTATION Name: SARA FARNSWORTH Room #: REG [facility] Gold.#: [id number] Admission: 01/26/21 Attend Phys: Chang Dodd DO Discharge: Date of : 31 Report #: [id number] THIS REPORT FOR: cc: Elio Pardo MD, Christopher B. MD Johnson, James E. DO ~ DOC #: [id number] Chang Dodd DO DATE OF SERVICE: 01/26/2021 REFERRING PHYSICIAN: Bob Carrillo MD CHIEF COMPLAINT: Low back pain, bilateral lower extremity pain with paresthesias. HISTORY OF PRESENT ILLNESS: As you know, the patient is an 89-year-old male who has been referred back to our clinic by his Neurosurgery team to discuss treatment for severe lumbar spinal stenosis. The patient has a large right paracentral disk protrusion at the L3-L4 level causing severe central canal stenosis and severe narrowing of the right lateral recess. He has other degenerative changes of the lumbar spine present on that imaging. He has undergone epidural injections under fluoroscopic guidance as treatment in 2019 without benefit. He was referred back to our clinic and underwent spinal cord stimulator trial implantation, which again provided no benefit and he did not progress with permanent implant. He sought evaluation through Neurosurgery and was advised surgical options would be his only available alternative. He was last followed up visit from our last visit of 04/16/2019. He has been referred back to our clinic by neurosurgery to discuss interventional treatment options in hopes of improving pain. The patient reports pain level today at 5/10 involving low back and bilateral lower extremity, right greater than left. ALLERGIES: TRAMADOL. CURRENT MEDICATIONS: Hydrocodone, cyclobenzaprine, sertraline, cholecalciferol, cyanocobalamin, omega 3 fish oil, aspirin and allopurinol. SOCIAL HISTORY: The patient denies tobacco, alcohol or IV or illicit drug use. He is retired, retired years ago. He is accompanied by his and his son present in room today. IMAGING: MRI lumbar spine obtained on 12/08/2020 shows L3-L4 large right paracentral disk protrusion with degenerative changes resulting in severe spinal stenosis of the central canal with only 6 mm space and severe narrowing of the right lateral recess. At L5-S1, there is right paracentral disk protrusion along with degenerative changes, facet arthropathy, resulting in moderate to severe narrowing of the left and right lateral recess and compression of the right S1 nerve root. L4-L5 degenerative changes resulting in moderate to severe [address] [address] PAIN MANAGEMENT CONSULTATION Name: SARA FARNSWORTH Room #: REG [facility]#: [id number] Admission: 01/26/21 Attend Phys: Chang Dodd DO Discharge: Date of : 31 Report #: [id number] narrowing of the left lateral recess and compression upon the left L5 nerve root. PHYSICAL EXAMINATION: PQRS: The patient has known arthritic changes of the cervical spine, bilateral hips, lumbar spine, bilateral knees. No rheumatoid arthritis, placing pain intensity 5/10. He is a fall risk, but has not had a fall in last 3 months. He does not use any type of ambulatory device. He is not on blood thinners nor is he treated for hypertension. He is on opioids, but has a low opioid addiction potential. Pain impact is 36/70, moderate interference of daily activities secondary to pain. VITAL SIGNS: Blood pressure 144/87, pulse 78, respiratory rate 20, unlabored. The patient 97% on room air. Height 5 feet 5 inches tall, weight 190.2 pounds, BMI calculated 31.7. GENERAL: Well-developed, well-nourished, well-hydrated 89-year-old male, appears stated age. He is in no acute distress. Awake and alert, seemingly oriented x 3, placing current pain score 5/10. HEENT: Normocephalic, atraumatic. Pupils are round. The patient is wearing a mask in compliance with COVID-19 regulations. Hearing is poor. LUNGS: Appear clear. No wheeze, rhonchi or rales. CARDIOVASCULAR: Regular. No appreciable gallop, no rub. ABDOMEN: Soft, mildly obese. EXTREMITIES: Show no clubbing, no cyanosis and no edema. MUSCULOSKELETAL: Lower extremity strength is equal and symmetrically deconditioned, but strength is 5/5 intact to light touch from L1 through S2 dermatomes. Seated straight leg raising negative. Supine straight leg raising positive. Fabere's test is negative. Modified Gaenslen's positive for axial back pain. Ankle clonus negative. Babinski is negative. Gait is extremely antalgic. Lumbar provocation testing is met with increasing pain in all planes of movement. ASSESSMENT: 1. Lumbar radiculopathy. 2. Severe central canal stenosis of lumbar spine. 3. 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 4. Neural foraminal stenosis of the lumbar spine. 5. Displacement of lumbar intervertebral disk with radiculopathy. 6. Lumbosacral spondylosis with radiculopathy. 7. Lumbar degeneration. 8. Chronic intractable pain. PLAN: 1. The patient has been referred back to our clinic by his Neurosurgery team to once again try lumbar epidural injections under fluoroscopic guidance. As indicated in the history of present illness, the patient underwent epidural injections in 2019 with minimal benefit. He transitioned to a spinal cord [facility] [address] [place] [address] PAIN MANAGEMENT CONSULTATION Name: SARA FARNSWORTH Room #: REG [facility] Gold.#: [id number] Admission: 01/26/21 Attend Phys: Chang Dodd DO Discharge: Date of : 31 Report #: [id number] stimulator trial which did not provide any improvement in symptoms. He followed up with his Neurosurgery team who advised surgical options if all else fails. He has been lost followup visit since 04/2019. He has returned today per the request of his neurosurgeon to undergo a lumbar epidural injection under fluoroscopic guidance to determine if this will improve his overall pain. Apparently, there was discussions about the surgical options at that last visit, but given the patient's advanced age there was concern that he would not be able to recover. He was sent to trial more conservative option today. We discussed with the patient the treatment options today. It was difficult as the patient's hearing is so poor. He cannot understand what we are discussing. We had this discussion with the family in the room, so that they can discuss with him more fully his treatment options. The following was discussed with the patient; we discussed physical therapy, stretching exercises and core strengthening as a treatment option. We discussed suggestions in medication management to add neuropathic pain medications such as amitriptyline, nortriptyline, Lyrica, Cymbalta or gabapentin. We discussed epidural injection under fluoroscopic guidance to address lumbar radiculopathy for which the patient was referred to our clinic. We also discussed surgical options with the patient. After reviewing the risks and benefits of all proposed treatment options, the patient chose to move forward with a lumbar epidural injection under fluoroscopic guidance. 2. The patient has been advised risks and benefits of a lumbar epidural injection. These risks include but are not necessarily limited to bleeding, bruising, infection, worsening pain, no relief of pain, also risk of temporary or permanent, muscle weakness, temporary or permanent nerve damage, possible paralysis, post-dural puncture headache and . The patient states understood and wished to proceed. 2. No medication changes made at today's visit. The patient will continue current medical therapy as prior prescribed. 3. We plan to see the patient back in followup visit in 1 month. At that time, review the efficacy of today's epidural injection and determine if next in the series of epidural injections would be recommended. 4. We wish to thank Dr. Bob Carrillo for the referral of this patient back to our clinic. We will keep you apprised of his response to treatment as we address lumbar radicular symptoms. PROCEDURE NOTE DESCRIPTION OF PROCEDURE: L4-L5 interlaminar epidural steroid injection under fluoroscopic guidance. After obtaining written consent, the patient was taken back to fluoroscopy suite, placed in a prone position with pillow under abdomen to decrease lumbar lordosis. Skin overlying lumbosacral area prepped and draped in aseptic fashion. The L4-L5 vertebral interspace identified by AP fluoroscopy. Skin and subcutaneous tissue overlying target site injection anesthetized with 3 mL 1% [address] [address] PAIN MANAGEMENT CONSULTATION Name: SARA FARNSWORTH Room #: REG [facility]#: [id number] Admission: 01/26/21 Attend Phys: Chang Dodd DO Discharge: Date of : 31 Report #: [id number] lidocaine. A 20 gauge 3-1/2 inch Tuohy needle advanced under fluoroscopic guidance towards the epidural space using a parasagittal approach. Epidural space identified using loss of resistance to air technique. After negative aspiration for heme or cerebrospinal fluid, 1 mL of Omnipaque injected. Lumbar epidurogram confirmed using both AP and lateral fluoroscopy. After negative aspiration for heme or cerebrospinal fluid, 5 mL solution containing 2 mL 40 mg per mL, 80 mg total triamcinolone along with 3 mL of lidocaine 1% injected slowly. Needle retracted senior living, flushed with 1 mL of 1% lidocaine and then removed. Sterile bandage placed over injection site. No new motor deficits present in lower extremity following procedure. The patient tolerated the procedure well, carefully escorted to recovery room in stable condition. No apparent complications. After meeting discharge criteria, the patient discharged home. Chang Dodd DO JEJ/SWA <ELECTRONICALLY SIGNED> By: Chang Dodd DO 01/27/21 [id number] Chang Dodd DO /nt
== END | disposition home or self-care (01) ==
LOC: PAIN 07:11
PROVIDERS: ATTEND Anesthesiology Pain Medicine
DX: M51.16 Intervertebral disc disorders with radiculopathy, lumbar region (principal); M48.061 Spinal stenosis, lumbar region without neurogenic claudication; M47.27 Other spondylosis with radiculopathy, lumbosacral region; G89.29 Other chronic pain; M19.90 Unspecified osteoarthritis, unspecified site; Z98.890 Other specified postprocedural states; Z79.899 Other long term (current) drug therapy; Z88.8 Allergy status to other drugs, medicaments and biological substances; Z79.891 Long term (current) use of opiate analgesic